=== PATIENT | female | born 1990 | race Caucasian/White ===

== ENCOUNTER 2019-02-28 14:45 | Emergency (ER) | payer OTHER ==
[~2019-02-28] VITALS: Ht 167.6 cm; Wt 55.8 kg
[2019-02-28] MEDS ORDERED: ACETAMINOPHEN ES 500 MG TABLET PO ONE (15:30)
[2019-02-28] MEDS ORDERED: GABAPENTIN 100 MG CAPSULE PO ONE (15:30)
[2019-02-28] MEDS ORDERED: LORAZEPAM 1 MG TABLET PO ONE (15:30)
[2019-02-28] MEDS ORDERED: LORAZEPAM 1 MG TABLET ONE (15:36)
[2019-02-28] MEDS ORDERED: ACETAMINOPHEN ES 500 MG TABLET ONE (15:36)
[2019-02-28] MEDS ORDERED: GABAPENTIN 100 MG CAPSULE ONE (15:37)
[2019-02-28] MEDS ORDERED: GABAPENTIN 300 MG CAPSULE ONE (15:37)
--- NOTE | 2019-02-28 15:44 | NUR ---
BIBWILDER, IN CUSTODY, MEDICAL CLEARANCE FOR POSSIBLE SEIZURE. PT AAOX4, VSS. RR EVEN & UNLABORED. DENIES CP, SOB, DIZZINESS, N/V, WEAKNESS @ THIS TIME. PT SEEN & EVAL'D BY DR. THOMAS. [employer] OFFICERS @ BS. MEDICATED ORDERED, PT CLARY WELL. WILL CONT TO MONITOR.
[2019-02-28 15:55] VITALS: BP 115/88
--- NOTE | 2019-02-28 15:57 | NUR ---
patient left in stable condition accompanied by Sherrif in custody. Left medically cleared.
== END 2019-02-28 15:56 ==
LOC: ER 14:50
DX: R56.9 Unspecified convulsions (principal); M79.7 Fibromyalgia; F41.9 Anxiety disorder, unspecified